=== PATIENT | female | born 1975 | race Caucasian/White ===

== ENCOUNTER 2018-02-20 02:38 | Emergency (ER) | payer MEDICAID, OTHER ==
[~2018-02-20] VITALS: Ht 167.6 cm; Wt 70.0 kg
[2018-02-20 02:45] VITALS: BP 123/71
[2018-02-20] MEDS ORDERED: FAMOTIDINE 20 MG TABLET PO ONE (03:00)
[2018-02-20] MEDS ORDERED: FAMOTIDINE 20 MG TABLET ONE (03:09)
== END 2018-02-20 04:10 | disposition home or self-care (01) ==
LOC: ED 02:53
DX: L50.9 Urticaria, unspecified (principal); F17.200 Nicotine dependence, unspecified, uncomplicated; F41.1 Generalized anxiety disorder; F32.9 Major depressive disorder, single episode, unspecified
CPT/HCPCS: 99283; J7512